=== PATIENT | male | born 1985 | race Caucasian/White ===

== ENCOUNTER 2018-03-31 19:23 | Emergency (ER) | payer SELFPAY ==
--- NOTE | 2018-03-31 19:30 | ER Report ---
History and Physical Time Seen By MD: 19:31 Hx. of Stated Complaint: started feeling fun [place] around 6pm. flet "like a clunmp" in his chest, headache, shakey, pain between should blades, dizzy, disorientated, cotton mouth, nauseated HPI/ROS CHIEF COMPLAINT: Near-syncope HISTORY OF PRESENT ILLNESS: 32-year-old male out for a walk with his dog and his significant other. We began to feel bad with a full sensation in his lower back. He became diaphoretic. He noted radiation of symptoms around his chest with some chest tightness. He had some mild nausea and shortness of breath. He reports eating out just prior to this with some alcohol ingestion. Patient notes no recent illness, URI cough sore throat fever or chills. Patient notes no leg swelling. Patient has no significant past medical history he takes no medications. His symptoms have mostly resolved except for some fullness in his back and mild nausea. REVIEW OF SYSTEMS: Respiratory: No cough, no dyspnea. Cardiovascular: No chest pain, no palpitations. Gastrointestinal: No vomiting, no abdominal pain. Musculoskeletal: As above Allergies: Coded Allergies: No Known Drug Allergies (Unverified , 03/31/18) Home Meds Active Scripts Ondansetron Hcl (ZOFRAN) 4 Mg Tablet, 4 MG PO Q6H for Nausea, #15 TAB Prov:WES BRAMBILA DO 03/31/18 Past Medical/Surgical History Unremarkable Reviewed Nurses Notes: Yes Old Medical Records Reviewed: Yes Constitutional Vital Sign - Last 24 Hours 03/31/18 03/31/18 03/31/18 03/31/18 19:23 19:25 19:26 19:30 Temp 98.9 Pulse ??? 72 Resp 12 B/P (MAP) 156/106 156/105 (122) 146/104 (118) Pulse Ox 94 O2 Delivery Room Air 03/31/18 03/31/18 03/31/18 03/31/18 19:38 19:53 19:58 20:00 Pulse 73 67 60 Resp 11 14 10 B/P (MAP) 145/89 (107) Pulse Ox 94 95 95 03/31/18 03/31/18 03/31/18 03/31/18 20:13 20:18 20:30 20:33 Pulse 59 64 ??? Resp 15 12 B/P (MAP) 138/81 (100) Pulse Ox 95 95 Intake and Output 03/31/18 03/31/18 04/01/18 14:59 22:59 06:59 Intake Total 1000 ml Balance 1000 ml Physical Exam General Appearance: The patient is alert, has no immediate need for airway protection and no current signs of toxicity. Vital signs stable, afebrile, pulse ox normal, slightly pale appearing, skin warm and dry HEENT: Pupils equal and round no injection. TMs normal, oropharynx, no redness or exudate, mucous. Membranes are moist Respiratory: Chest is non tender, lungs are clear to auscultation. Cardiac: regular rate and rhythm, no murmur Gastrointestinal: Abdomen is soft and non tender, no masses, bowel sounds n ormal. No CVA tenderness Musculoskeletal: Neck: Neck is supple and non tender. No lymphadenopathy. Back: There is no tenderness along palpation of the lumbar thoracic spine midline. There is no tenderness on palpation of the paraspinous muscle Extremities have full range of motion and are non tender. No edema, no calf tenderness Skin: No rashes or lesions. [ ] DIFFERENTIAL DIAGNOSIS: After history and physical exam differential diagnosis was considered for back pain including but not limited to muscular pain, herniated disc, spine fracture, intra-abdominal causes and urinary tract infect ion. Additionally,syncope including but not limited to vasovagal syncope, arrhythmia, dehydration, poisoning, gastroenteritis, viral syndrome, pancreatitis and blood loss. Medical Decision Making Data Points Result Diagram: 03/31/18194703/31/181947 Laboratory Hematology Test 03/31/18 19:48 Red Blood Count 5.65 M/uL (4.00-5.60) Mean Corpuscular Volume 88.1 fL (80.0-96.0) Mean Corpuscular Hemoglobin 31.4 pg (26.0-33.0) Mean Corpuscular Hemoglobin Concent 35.6 g/dL (32.0-36.0) Red Cell Distribution Width 13.5 % (11.5-14.5) Mean Platelet Volume 9.1 fL (7.2-11.1) Neutrophils (%) (Auto) 61.9 % (39.4-72.5) Lymphocytes (%) (Auto) 28.9 % (17.6-49.6) Monocytes (%) (Auto) 6.8 % (4.1-12.4) Eosinophils (%) (Auto) 1.6 % (0.4-6.7) Basophils (%) (Auto) 0.8 % (0.3-1.4) Nucleated RBC Relative Count (auto) 0.0 /100WBC Neutrophils # (Auto) 5.5 K/uL (2.0-7.4) Lymphocytes # (Auto) 2.6 K/uL (1.3-3.6) Monocytes # (Auto) 0.6 K/uL (0.3-1.0) Eosinophils # (Auto) 0.1 K/uL (0.0-0.5) Basophils # (Auto) 0.1 K/uL (0.0-0.1) Nucleated RBC Absolute Count (auto) 0.00 K/uL D-Dimer Quantitative (PE/DVT) < 0.27 ug/ml (0-0.50) Sodium Level 139 mmol/L (137-145) Potassium Level 3.9 mmol/L (3.5-5.0) Chloride Level 107 mmol/L (98-107) Carbon Dioxide Level 22 mmol/L (22-30) Blood Urea Nitrogen 14 mg/dl (9-21) Creatinine 1.20 mg/dl (0.66-1.25) Glomerular Filtration Rate Calc > 60.0 Random Glucose 92 mg/dl (75-110) Calcium Level 9.3 mg/dl (8.4-10.2) Total Bilirubin 0.3 mg/dl (0.2-1.3) Aspartate Amino Transf (AST/SGOT) 24 U/L (0-35) Alanine Aminotransferase (ALT/SGPT) 34 U/L (0-56) Alkaline Phosphatase 55 U/L (0-126) Troponin I < 0.012 ng/ml B-Type Natriuretic Peptide < 5 pg/ml (0-100) Total Protein 6.9 g/dl (6.3-8.2) Albumin 4.2 g/dl (3.5-5.0) Lipase 84 U/L (23-300) Chemistry Test 03/31/18 19:48 White Blood Count 8.9 k/uL (4.5-11.0) Red Blood Count 5.65 M/uL (4.00-5.60) Hemoglobin 17.7 g/dL (14.0-18.0) Hematocrit 49.8 % (42.0-52.0) Mean Corpuscular Volume 88.1 fL (80.0-96.0) Mean Corpuscular Hemoglobin 31.4 pg (26.0-33.0) Mean Corpuscular Hemoglobin Concent 35.6 g/dL (32.0-36.0) Red Cell Distribution Width 13.5 % (11.5-14.5) Platelet Count 179 K/uL (150-450) Mean Platelet Volume 9.1 fL (7.2-11.1) Neutrophils (%) (Auto) 61.9 % (39.4-72.5) Lymphocytes (%) (Auto) 28.9 % (17.6-49.6) Monocytes (%) (Auto) 6.8 % (4.1-12.4) Eosinophils (%) (Auto) 1.6 % (0.4-6.7) Basophils (%) (Auto) 0.8 % (0.3-1.4) Nucleated RBC Relative Count (auto) 0.0 /100WBC Neutrophils # (Auto) 5.5 K/uL (2.0-7.4) Lymphocytes # (Auto) 2.6 K/uL (1.3-3.6) Monocytes # (Auto) 0.6 K/uL (0.3-1.0) Eosinophils # (Auto) 0.1 K/uL (0.0-0.5) Basophils # (Auto) 0.1 K/uL (0.0-0.1) Nucleated RBC Absolute Count (auto) 0.00 K/uL D-Dimer Quantitative (PE/DVT) < 0.27 ug/ml (0-0.50) Glomerular Filtration Rate Calc > 60.0 Calcium Level 9.3 mg/dl (8.4-10.2) Total Bilirubin 0.3 mg/dl (0.2-1.3) Aspartate Amino Transf (AST/SGOT) 24 U/L (0-35) Alanine Aminotransferase (ALT/SGPT) 34 U/L (0-56) Alkaline Phosphatase 55 U/L (0-126) Troponin I < 0.012 ng/ml B-Type Natriuretic Peptide < 5 pg/ml (0-100) Total Protein 6.9 g/dl (6.3-8.2) Albumin 4.2 g/dl (3.5-5.0) Lipase 84 U/L (23-300) Coagulation Test 03/31/18 19:48 D-Dimer Quantitative (PE/DVT) < 0.27 ug/ml EKG/Imaging EKG Interpretation 12 lead EKG: Rhythm: normal sinus rhythm [[place]:] normal QRS: normal ST segments: normal, no evidence of ischemia or dysrhythmia Imaging X-ray: Two-view chest x-ray was obtained. I viewed the images myself on the PACS system. My interpretation of the images is: No infiltrate, no effusion, normal mediastinum. The radiologist interpretation had no clinically significant variation from this interpretation. ED Course/Re-evaluation Clinical Indication for ER IV: Hydration, IV Access ED Course Patient was admitted to an examination room. H&P was done. The differential diagnoses was considered. On clinical examination. Patient having near syncopal symptoms. I suspect vagal reaction, likely due to food poisoning. Patient's treated with IV fluid hydration. His EKG is unremarkable. Troponin, d-dimer and other studies are unremarkable. Patient's advised clear liquid diet. He is given Zofran for nausea and vomiting control. She advised to follow-up with primary care if unimproved in 2-3 days. Decision to Disposition Date: Mar 31, 2018 Decision to Disposition Time: 20:24 Depart Departure Latest Vital Signs Vital Signs Date Time Temp Pulse Resp B/P (MAP) Pulse Ox O2 Delivery O2 Flow Rate FiO2 03/31/18 20:33 ??? 03/31/18 20:30 138/81 (100) 03/31/18 20:18 12 95 03/31/18 19:25 98.9 Room Air Impression: Primary Impression: Near syncope Additional Impressions: Nausea Back pain Condition: Improved Disposition: HOME OR SELF-CARE Referrals: LUCHO PIERRE MD New Scripts Ondansetron Hcl (ZOFRAN) 4 Mg Tablet 4 MG PO Q6H for Nausea, #15 TAB Prov: WES BRAMBILA DO 03/31/18 Patient Instructions: Clear Liquid Diet (ED), Near Syncope (ED) Additional Instructions: Follow clear liquid diet for 24 hours Use ibuprofen 200 mg 3 tablets 3 times daily as needed for pain relief Follow-up with Dr. Pierre primary care if unimproved in 3-5 days Problem Qualifiers Additional Impressions: Back pain Back pain location: thoracic back pain Chronicity: unspecified Back pain laterality: unspecified Qualified Codes: M54.6 - Pain in thoracic spine WES BRAMBILA DO Mar 31, 2018 19:30
[2018-03-31] MEDS ORDERED: NS(*) 0.9% 1000 ML BAG 1,000 ML IV ONE (19:34)
[2018-03-31] MEDS ORDERED: ASPIRIN 81 MG CHEW PO ONE (19:35)
[2018-03-31] MEDS ORDERED: ONDANSETRON 4 MG/2 ML VIAL IVP ONE (19:35)
--- NOTE | 2018-03-31 19:42 | EKG ---
FACILITY: [facility] PATIENT NAME: AUREA MARIE : [id number] MR: [id number] V: [id number] EXAM DATE: ORDERING PHYSICIAN: WES BRAMBILA TECHNOLOGIST: ANDREW Pate Reason : CARDIAC Blood Pressure : / mmHG Vent. Rate : 068 BPM Atrial Rate : 068 BPM P-R Int : 150 ms QRS Dur : 102 ms QT Int : 390 ms P-R-T Axes : 062 077 037 degrees QTc Int : 414 ms Normal sinus rhythm Normal ECG Confirmed by YOMAIRA FERMIN ([id number]) on 03/31/2018 8:26:22 PM Referred By: Confirmed By:YOMAIRA FERMIN
[2018-03-31 20:01] LABS: PLATELET COUNT, AUTOMATED 179 K/uL (150-450)
[2018-03-31] MEDS ORDERED: ONDA4TAB97 PO (20:26)
[2018-03-31 20:30] VITALS: BP 138/81
--- NOTE | 2018-03-31 20:42 | RADIOLOGY IMAGING REPORT ---
FACILITY: [facility] PATIENT NAME: Choco Austin : 1985 MR: [id number] V: [id number] EXAM DATE: ORDERING PHYSICIAN: WES BRAMBILA TECHNOLOGIST: Location: [facility] Patient: Choco Austin : 1985 Visit/Account:[id number] Date of Sevice: 03/31/2018 2 VIEWS CHEST INDICATION: Chest pain. COMPARISON: None available FINDINGS: Cardiomediastinal silhouette and pulmonary vessels within normal limits. There is no focal infiltrate or lobar consolidation. There is no pneumothorax or pleural effusion. No nodule. Upper abdomen is unremarkable. No acute bony abnormality. IMPRESSION: 1. No acute cardiopulmonary process. Report Dictated By: Reji Garcia at 03/31/2018 8:35 PM Report E-Signed By: Reji Garcia at 03/31/2018 8:36 PM WSN:[id number]
== END 2018-03-31 20:39 | disposition home or self-care (01) ==
LOC: ER 19:52
DX: R55 Syncope and collapse (principal); R11.0 Nausea; M54.6 Pain in thoracic spine
CPT/HCPCS: 71046; 83690; 83880; 84484; 85025; 85379; 93005; 96361; 96374; 99284; J2405; J7030; 82040; 82247; 82310; 82374; 82435; 82565; 82947; 84075; 84132; 84155; 84295; 84450; 84460; 84520